=== PATIENT | female | born 1950 | race Caucasian/White ===

== ENCOUNTER 2020-11-02 07:40 | Day surgery (SDC) | payer MEDICARE ==
[2020-10-26 09:54] LABS: BILIRUBIN NEGATIVE (NEGATIVE); BLOOD NEGATIVE Ery/uL (NEGATIVE); CLARITY CLEAR (CLEAR); COLOR YELLOW (YELLOW); GLUCOSE (U) NORMAL (NORMAL); LEUKOCYTES 1+ Leu/uL (NEGATIVE); NITRITE NEGATIVE (NEGATIVE); PROTEIN TRACE (LOW) mg/dL (NEGATIVE)
[2020-10-26 10:11] LABS: BACTERIA TRACE
--- NOTE | 2020-10-26 16:00 | NUR ---
10/26/2020 @ 1310: MICHELLE GLYNN RN PERFORMING HER PRE-OP ASSESSMENT. PT REPORTS TO HER AN ALLERGY TO NICKEL. STATES SHE CANNOT WEAR ANY JEWELRY THAT CONTAINS NICKEL. DR. BRANDT NOTIFIED. PT SURGERY CANCELLED DUE TO ONLY AVAILABLE IMPLANTS CONTAIN NICKEL. DR. BRANDT TO NOTIFY HIS OFFICE TO RESCHEDULE PT. PT AND HER FAMILY NOTIFIED AND VOICE UNDERSTANDING.
--- NOTE | 2020-10-26 16:03 | NUR ---
10/26/20 @ 1357: PT AND HER FAMILY INSTRUCTED TO CALL DR. BRANDT'S OFFICE TOMORROW FOR FURTHER INSTRUCTIONS OTHERWISE OK TO GO HOME. PT TAKEN VIA W/C TO PRIVATE VEHICLE WITH FAMILY DRIVING.
[~2020-11-02] VITALS: Ht 168 cm; Wt 83.0 kg
[~2020-11-02 07:40] MED LIST: ASPIRIN EC81 MG PO; ATORVASTATIN CA40 MG PO; BUPROPION XL300 MG PO; CALCIUM + VITA1 EACH PO; CENTRUM SILVER1 EAC4 PO; CETIRIZINE HCL10 MG PO; CIPRO500 MG PO; COZAAR100 MG PO; CYANOCOBAL1000 MCG/1 IM; DULOXETINE HCL30 MG PO; GLUCOSAMINE CH1 EAC2 PO; LEVETIRACETAM1000 MG PO; MACROBID100 MG PO; OXCARBAZEPINE300 MG PO; PRILOSEC20 MG PO; SYNTHROID112 MC1 PO; TYLENOL PM EX-1 EACH PO; VITAMIN D325 MC2 PO; ZOFRAN8 MG PO
[2020-11-02] MEDS ORDERED: PERCOCET 5-3251 EACH PO (12:44)
--- NOTE | 2020-11-02 14:59 | NUR ---
PT. HAD A LTKR THIS DATE. SHE HAS A ROLLING WALKER. [facility] TO DELIVER A 07/06. PT. TO DECIDE WHICH HH SHE WOULD LIKE TO HAVE.
[2020-11-03 06:08] LABS: BASOPHIL 0.2 % (0-2); EOSINOPHIL 1.2 % (0-7); HCT 32.3 % (37.0-47.0); HGB 10.8 g/dl (12.5-16.0); LYMPHOCYTE 15.2 % (15-48); MCH 31.9 pg (25.0-31.0); MCHC 33.4 g/dL (32.0-36.0); MCV 95.3 fL (78.0-100.0); MONOCYTE 10.7 % (0-12); MPV 9.6 fL (6.0-9.5); NEUTROPHIL 72.2 % (41-80); NRBC 0; PLT 147 K/uL (150-400); RBC 3.39 M/uL (4.20-5.40); RDW 13.3 % (11.5-14.0); WBC 6.5 K/uL (4.0-10.5)
[2020-11-03 06:22] LABS: BUN/CREAT RATIO (CALC) 22.6 RATIO; CREATININE 0.84 mg/dL (0.51-0.95); POTASSIUM 4.2 mmol/L (3.5-5.1)
[2020-11-03] MEDS ORDERED: XARELTO10 MG PO (09:32)
[2020-11-03] MEDS ORDERED: FEOSOL325 MG PO (09:32)
[2020-11-03] MEDS ORDERED: ZOFRAN4 M1 PO (09:32)
[2020-11-03] MEDS ORDERED: 3IN1 COMMODE XX (09:33)
--- NOTE | 2020-11-03 10:10 | NUR ---
PT. WILL GO TO HER NARESH'S HOME AT [address] [place] [address] AFTER HER DISCHARGE FROM HOSPITAL. SHE WILL THEN GO TO HER HOME IN [facility]. ADVISED HEAVENLY WITH [facility] OF THE REQUEST FOR VNA/NAVA AND THE CHANGE OF ADDRESS. PT. SIGNED CHOICE FORM. PT ALSO RECEIVED A 07/06 FROM MELE GREWAL AT [facility] PT. COPAY FOR AMANDA IS $14.00. ADVISED PT. OF THIS INFORMATION.
== END 2020-11-03 12:54 | disposition home health service (06) ==
LOC: FAS 07:40 → FMS 07:40 → FAS 08:30 → EDSTATUS 08:30 → FMS 13:43 → FAS 11-03 12:54
PROVIDERS: Anesthesiology; Legal Medicine
DX: M17.12 Unilateral primary osteoarthritis, left knee (principal); J45.909 Unspecified asthma, uncomplicated; K21.9 Gastro-esophageal reflux disease without esophagitis; R56.9 Unspecified convulsions; R94.31 Abnormal electrocardiogram [ECG] [EKG]; F41.9 Anxiety disorder, unspecified; E03.9 Hypothyroidism, unspecified; I10 Essential (primary) hypertension; E78.5 Hyperlipidemia, unspecified; M79.7 Fibromyalgia; Z87.891 Personal history of nicotine dependence; Z86.73 Personal history of transient ischemic attack (TIA), and cerebral infarction without residual deficits
CPT/HCPCS: 36415; 73560; 80048; 81001; 85025; 86850; 86900; 86901; 94010; 94760; 94762; 97110; 97162; 97166; 97530-GP; 97535; C1713; C1776; J0171; J0697; J0735; J1100; J1170; J1885; J2250; J2270; J2405; J2704; J2795; J3010; J7120

== ENCOUNTER 2020-12-21 13:28 | Emergency (ER) | payer MEDICARE ==
[~2020-12-21 13:28] MED LIST changes: +3IN1 COMMODE XX; +FEOSOL325 MG PO; +PERCOCET 5-3251 EACH PO; +XARELTO10 MG PO; +ZOFRAN4 M1 PO
[2020-12-21] MEDS ORDERED: ZOFRAN4 M1 PO (17:26)
[2020-12-21] MEDS ORDERED: NORCO 5-325 TA1 EACH PO (17:26)
== END 2020-12-21 17:45 | disposition home or self-care (01) ==
LOC: FER 13:28
DX: S42.355A Nondisplaced comminuted fracture of shaft of humerus, left arm, initial encounter for closed fracture (principal); U07.1 COVID-19; I10 Essential (primary) hypertension; J45.909 Unspecified asthma, uncomplicated; W18.40XA Slipping, tripping and stumbling without falling, unspecified, initial encounter; Y92.812 Truck as the place of occurrence of the external cause
CPT/HCPCS: 73030; U0002